=== PATIENT | male | born 1995 | race Caucasian/White ===

== ENCOUNTER 2025-03-29 15:21 | Emergency (ER) | payer MEDICAID ==
[~2025-03-29] VITALS: Ht 162.6 cm; Wt 85.0 kg
[2025-03-29 15:24] VITALS: O2SAT 98
[2025-03-29 15:33] VITALS: BP 128/66; PULSE 102; RESP 16; TEMP 36.6; O2SAT 98
[2025-03-29 16:46] LABS: BASOPHILS % 0.7 % (0.0-2.0); EOSINOPHILS % 1.8 % (0.0-5.0); HEMATOCRIT. 44.5 % (42.0-52.0); MEAN CORPUSCULAR HEMOGLOBIN 29.3 pg (28.0-32.0); MEAN CORPUSCULAR HGB CONC 33.7 g/dL (31.0-37.0); MEAN CORPUSCULAR VOLUME 86.8 fL (80.0-94.0); MEAN PLATELET VOLUME 10.4 fl (7.4-10.4); NEUTROPHILS % 67.5 % (40.0-76.0); PLATELET 161 x1000/uL (130-400); RED BLOOD CELL COUNT 5.13 mill/uL (4.7-6.1); RED CELL DISTRIBUTION WIDTH 12.7 % (11.6-14.6); WHITE BLOOD COUNT 12.3 x1000/uL (4.5-11.0)
[2025-03-29 16:51] LABS: DIFFERENTIAL COMMENT 1
[2025-03-29 16:55] LABS: CHLORIDE 103 mEq/L (98-107)
[2025-03-29 16:56] LABS: POTASSIUM 3.7 mEq/L (3.5-5.1); PROTHROMBIN TIME 10.9 sec (9.6-11.0); SODIUM 137 mEq/L (136-145)
[2025-03-29 16:57] LABS: CALCIUM 9.3 mg/dL (8.7-10.4); CARBON DIOXIDE 26 mEq/L (21-32)
[2025-03-29 17:02] LABS: CREATININE 0.9 mg/dL (0.6-1.3); GLUCOSE 91 mg/dL (70-105); UREA NITROGEN BLOOD 18 mg/dL (9-23)
[2025-03-29 17:03] LABS: TROPONIN I HIGH SENSITIVITY < 4 ng/L (3.0-53)
[2025-03-29] MEDS ORDERED: AMOX1TAB16 MT (17:06)
== END 2025-03-29 17:17 | disposition home or self-care (01) ==
LOC: ER 15:21
DX: R05.9 Cough, unspecified (principal); Z98.890 Other specified postprocedural states
CPT/HCPCS: 36415; 71045; 80048; 84484; 85025; 99284